=== PATIENT | female | born 1980 | race Two or more races ===

== ENCOUNTER 2017-06-28 11:07 | Emergency (ER) | payer MEDICAID ==
[~2017-06-28] VITALS: Ht 165.1 cm; Wt 63.5 kg
[2017-06-28 11:56] VITALS: BP 130/79
[2017-06-28 12:49] LABS: Urine Bilirubin Negative (Negative); Urine Blood 2+ /uL (Negative); Urine Color Yellow (Yellow); Urine Glucose Normal (Normal); Urine Ketone Negative (Negative); Urine Nitrite Negative (Negative); Urine RBC 3 /hpf (0 - 4); Urine Urobilinogen Normal (Negative)
== END 2017-06-28 13:24 | disposition home or self-care (01) ==
LOC: ER 11:07
DX: O20.0 Threatened abortion (principal); Z3A.01 Less than 8 weeks gestation of pregnancy
CPT/HCPCS: 36415; 76801; 76817; 81001; 84702

== ENCOUNTER 2017-07-02 12:22 | Emergency (ER) | payer MEDICAID ==
[~2017-07-02] VITALS: Ht 165.1 cm; Wt 54.4 kg
[2017-07-02 14:00] LABS: Basophils # (auto) 0 uL; Basophils % (auto) 0.6 % (0.0-2.0); Eosinophils # (auto) 0.1 uL; Eosinophils % (auto) 1.3 % (0.0-7.0); Hematocrit 44.1 % (36.0-46.0); Lymphocytes # (auto) 1.8 uL; Mean Corpuscular Hemoglobin 32.8 pg (28.0-32.0); Mean Corpuscular Hgb Conc. 34.1 g/dL (32.0-36.0); Mean Corpuscular Volume 96.2 fL (80.0-100.0); Mean Platelet Volume 8.4 fL (6.9-10.8); Monocytes # (auto) 0.4 uL; Monocytes % (auto) 6.9 % (0.0-12.0); Neutrophils # (auto) 3.9 uL; Neutrophils % (auto) 62.2 % (37.0-80.0); Nucleated Red Blood Cells % 0.1 %; Platelet Count (auto) 219 10^3/uL (140-450); Red Cell Distribution Width 13.2 % (11.8-14.3); White Blood Cell 6.3 10^3/uL (4.4-10.8)
[2017-07-02 14:19] LABS: BUN/Creatinine Ratio 15.5; Potassium 3.7 mmol/L (3.5-5.1)
[2017-07-02 16:25] VITALS: BP 137/85
[2017-07-02] MEDS ORDERED: SODIUM CHLORIDE 0.9% 1,000 ML IV ONE (16:33)
== END 2017-07-02 17:47 | disposition home or self-care (01) ==
LOC: ER 12:22
DX: O26.891 Other specified pregnancy related conditions, first trimester (principal); E86.9 Volume depletion, unspecified
CPT/HCPCS: 36415; 80048; 84702; 85025; 96360; 99284; J7030